=== PATIENT | male | born 1940 | race Caucasian/White ===

== ENCOUNTER 2023-07-09 15:26 | Emergency (ER) | payer SELFPAY ==
[~2023-07-09] VITALS: Ht 167.6 cm; Wt 68.0 kg
[2023-07-09 16:07] VITALS: BP 165/77
== END 2023-07-09 16:18 | DRG 605 ==
LOC: ED 15:26
PROC: 0HQDXZZ Repair Right Lower Arm Skin, External Approach (ICD-10-PCS; principal; 2023-07-09)
DX: S51.811A Laceration without foreign body of right forearm, initial encounter (principal); Y35.893A Legal intervention involving other specified means, suspect injured, initial encounter

== ENCOUNTER 2023-07-20 21:32 | Emergency (ER) | payer SELFPAY ==
[~2023-07-20] VITALS: Ht 167.6 cm; Wt 86.0 kg
[2023-07-20 21:47] VITALS: BP 141/61
[2023-07-20 22:00] VITALS: BP 151/69
[2023-07-20 22:15] LABS: BASO% 0.7 % (0-3); EOS% 1.7 % (0-8); HEMATOCRIT 39.2 % (39.0-50.0); HEMOGLOBIN 13.4 g/dl (14.0-18.0); IMMATURE GRANULOCYTES 0.4 % (0.0-5.0); LYMPH% 23.5 % (15-41); MEAN CELL VOLUME 95.1 fL CALC (80.0-100.0); MEAN CORPUSCULAR HGB 32.5 pG CALC (26.0-32.0); MEAN CORPUSCULAR HGB CONC 34.2 g/dL CAL (32.0-36.0); MONO% 14.8 % (2-13); NEUT# 4.13 thou/uL (1.82-7.42); NEUT% 58.9 % (42-76); RED BLOOD COUNT 4.12 mill/uL (4.70-6.10); RED CELL DISTRI WIDTH 12.1 % (11.5-15.5)
[2023-07-20 22:19] LABS: ALBUMIN 4.3 g/dL (3.2-5.0); ALKALINE PHOSPHATASE 69 u/l (38-126); ANION GAP 13 (6-22 (CALC)); BILIRUBIN, TOTAL 0.4 mg/dL (0.2-1.3); BUN 37 mg/dL (8-23); BUN/CREATININE RATIO 35 (12-20 (CALC)); CARBON DIOXIDE 25 mmol/l (22-30); CHLORIDE 107 mmol/l (95-108); CREATININE 1.1 mg/dL (0.7-1.3); GFR FOR AFR.AMER. > 60 ML/MIN (>=60 (CALC)); GFR OTHER RACES > 60 ML/MIN (>=60 (CALC)); POTASSIUM 4.4 mmol/l (3.5-5.1); SGOT/AST 29 u/l (19-48); SODIUM 140 mmol/l (137-146); TOTAL PROTEIN 6.7 g/dL (6.3-8.2)
[2023-07-20] MEDS ORDERED: [UNRECOGNIZED DRUG - OTHER] PO (22:22)
[2023-07-20] MEDS ORDERED: BL IBUPROFEN200 MG PO (22:22)
[2023-07-20] MEDS ORDERED: MILK OF MAGNESI1 SUS (22:23)
[2023-07-20] MEDS ORDERED: TUMS E-X 750750 MG PO (22:23)
[2023-07-21 02:29] VITALS: BP 151/69
== END 2023-07-21 04:25 | disposition home or self-care (01) | DRG 605 ==
LOC: ED 21:32
PROVIDERS: Family Medicine
PROC: 0HQEXZZ Repair Left Lower Arm Skin, External Approach (ICD-10-PCS; principal; 2023-07-20)
DX: S60.812A Abrasion of left wrist, initial encounter (principal); S60.811A Abrasion of right wrist, initial encounter; S00.03XA Contusion of scalp, initial encounter; S60.212A Contusion of left wrist, initial encounter; S60.211A Contusion of right wrist, initial encounter; X58.XXXA Exposure to other specified factors, initial encounter